=== PATIENT | female | born 1960 | race Caucasian/White ===

== ENCOUNTER → 2017-10-20 | Outpatient (CLI) | payer OTHER | END | disposition home or self-care (01) | LOC: RAD 14:35 | DX: N93.9 Abnormal uterine and vaginal bleeding, unspecified (principal) | CPT/HCPCS: 76856 ==

== ENCOUNTER 2018-04-27 15:44 | Observation (INO) | payer OTHER ==
[~2018-04-27] VITALS: Ht 180.3 cm; Wt 96.2 kg
[2018-04-27] MEDS ORDERED: ASPIRIN 81 MG TABLET CHEW PO ONE (16:00)
--- NOTE | 2018-04-27 16:16 | NUR ---
patient arrives to er with chest pain that began this morning. the pain is an aching intermittent pain that radiates to left arm and back. in gown, on monitor, rails up, blood drawn, Mo at bedside.
[2018-04-27 16:29] LABS: BASOPHILS # (AUTO) 0.03 x10^3/uL (0-0.1); BASOPHILS % (AUTO) 0 % (0-1); EOSINOPHILS # (AUTO) 0.03 x10^3/uL (0-0.4); EOSINOPHILS % (AUTO) 0 % (1-7); LYMPHOCYTES # (AUTO) 2.43 x10^3/uL (1-3.4); LYMPHOCYTES % (AUTO) 31 % (22-44); MD NO; MEAN CORPUSCULAR HEMOGLOBIN 31.2 pg (27.0-34.8); MEAN CORPUSCULAR HGB CONC 34.4 g/dL (32.4-35.8); MEAN CORPUSCULAR VOLUME 90.7 fL (80-100); MEAN PLATELET VOLUME 8.8 fL (7.4-10.4); MONOCYTES % (AUTO) 6 % (2-9); NEUTROPHILS # (AUTO) 4.83 x10^3/uL (1.8-6.8); NEUTROPHILS % (AUTO) 62 % (42-75); PLATELET COUNT 295 x10^3/uL (130-400); RED BLOOD COUNT 4.45 x10^6/uL (3.82-5.3); RED CELL DISTRIBUTION WIDTH 13.6 % (9.6-15.2)
[2018-04-27] MEDS ORDERED: NITROGLYCERIN SINGLE TAB 0.4 MG SL PRN ×2 (16:30→18:00)
[2018-04-27 16:41] LABS: ALANINE AMINOTRANSFERASE 31 U/L (12-78); ALBUMIN 4.4 g/dL (3.4-5.0); ANION GAP 8 mmol/L (5-15); CALCIUM 9.8 mg/dL (8.5-10.1); CHLORIDE 106 mmol/L (98-107)
[2018-04-27 16:45] LABS: ALKALINE PHOSPHATASE 59 U/L (45-117); BILIRUBIN,TOTAL 0.6 mg/dL (0.2-1.0); TOTAL PROTEIN 7.9 g/dL (6.4-8.2); TROPONIN I < 0.015 ng/mL (0.000-0.045)
[2018-04-27] MEDS ORDERED: NITROGLYCERIN SINGLE TAB 0.4 MG SL ONE (16:46)
[2018-04-27] MEDS ORDERED: ASPIRIN 81 MG TABLET EC ONE (16:46)
[2018-04-27] MEDS ORDERED: BISACODYL 5 MG EC TABLET PO PRN (18:00)
[2018-04-27] MEDS ORDERED: CALCIUM CARBONATE 500 MG TAB.CHEW PO PRN (18:00)
[2018-04-27] MEDS ORDERED: ENOXAPARIN 40 MG/0.4 ML ONE (18:00)
[2018-04-27] MEDS ORDERED: MAALOX/HYOSCYAMINE/LIDOCAINE 45 ML BTL PO PRN (18:00)
[2018-04-27] MEDS ORDERED: ENOXAPARIN 40 MG/0.4 ML SQ SCH (18:00)
[2018-04-27] MEDS ORDERED: NITROGLYCERIN 0.4 MG/SPRAY SL PRN (18:00)
[2018-04-27] MEDS ORDERED: ONDANSETRON 2MG/ML, 2ML IVP PRN (18:00)
[2018-04-27] MEDS ORDERED: ACETAMINOPHEN 650 MG/20.3 ML UDC PO PRN (18:00)
[2018-04-27] MEDS ORDERED: NITROGLYCERIN 0.4 MG BOTTLE (25 TABS) SL PRN (18:00)
[2018-04-27] MEDS ORDERED: morphine SULFATE 10 MG/ML, 1ML IV PRN (18:00)
--- NOTE | 2018-04-27 18:03 | NUR ---
PATIENT AWAITING ADMISISON. GOT HER UP TO BATHROOM, WALKS WITH NO COMPLICATIONS. PATIENT IS CALM, DENIES PAIN AT THIS TIME.
[2018-04-27 18:29] LABS: C-REACTIVE PROTEIN, QUANT 0.45 mg/dL (0.02-0.49)
[2018-04-27 18:38] LABS: THYROID STIMULATING HORMONE 0.453 mIU/L (0.358-3.740)
--- NOTE | 2018-04-27 18:44 | NUR ---
patient returned from radiology
[2018-04-27 19:11] LABS: HCT (SEDRATE) 40.4 % (34.6-47.8)
--- NOTE | 2018-04-27 19:33 | NUR ---
patient awaiting room assignment on tele. in bed, rails up.
[2018-04-27] MEDS ORDERED: LEVO100T5 PO (19:55)
--- NOTE | 2018-04-27 20:15 | NUR ---
BREAK RN: PT RESTING IN BED. LAB HAS DRAWN SECOND TROP. NO CURRENT NEEDS AT THIS TIME.
[2018-04-27 20:18] LABS: TROPONIN I < 0.015 ng/mL (0.000-0.045)
--- NOTE | 2018-04-27 20:20 | NUR ---
BREAK RN: ATTEMPTED TO CALL 5TH FLOOR RN FOR REPORT. FLOOR RN UNAVAILABLE AT THIS TIME.
--- NOTE | 2018-04-27 20:28 | NUR ---
REPORT CALLED TO CELENA CEDEÑO FOR ROOM [phone]
[2018-04-27 20:56] VITALS: BP 142/83
[2018-04-27] MEDS ORDERED: SODIUM CHLORIDE FLUSH 10ML SYR IVF SCH (21:00)
[2018-04-28 02:33] LABS: TROPONIN I < 0.015 ng/mL (0.000-0.045)
[2018-04-28 02:51] LABS: CHOL/HDL RATIO 2.6; LDL/HDL RATIO 1.3 (0.5-3.0)
[2018-04-28 03:02] VITALS: BP 100/63
[2018-04-28] MEDS ORDERED: ASPIRIN 325 MG TABLET EC PO SCH (06:00)
[2018-04-28 07:53] VITALS: BP 110/75
== END 2018-04-28 16:00 | disposition home or self-care (01) ==
LOC: ED 16:43 → EDIP 18:06 → 5SO 20:45
PROVIDERS: ADMIT Hospitalist; ATTEND Hospitalist
DX: R07.89 Other chest pain (principal); R09.02 Hypoxemia; K21.9 Gastro-esophageal reflux disease without esophagitis; E89.0 Postprocedural hypothyroidism; Z82.0 Family history of epilepsy and other diseases of the nervous system; Z82.3 Family history of stroke; Z82.49 Family history of ischemic heart disease and other diseases of the circulatory system; Z83.2 Family history of diseases of the blood and blood-forming organs and certain disorders involving the immune mechanism; Z86.73 Personal history of transient ischemic attack (TIA), and cerebral infarction without residual deficits; Z83.3 Family history of diabetes mellitus; Z90.49 Acquired absence of other specified parts of digestive tract
CPT/HCPCS: 36415; 70450; 71046; 78452; 80053; 80061; 83735; 84443; 84484; 85025; 85379; 85651; 86140; 93005; 93017; 93306; 93970; 96372; 99284; A9502; C9898; G0378; J1650

== ENCOUNTER → 2019-12-26 | Outpatient (CLI) | payer OTHER ==
[~2019-12-26] MED LIST: LEVO100T5 PO
== END | disposition home or self-care (01) ==
LOC: CFH 09:18
PROVIDERS: ATTEND Nurse Practitioner
DX: Z12.31 Encounter for screening mammogram for malignant neoplasm of breast (principal); R22.1 Localized swelling, mass and lump, neck
CPT/HCPCS: 76536; 77063; 77067